=== PATIENT | female | born 1970 | race African-American/Black ===

== ENCOUNTER 2019-01-12 11:46 | Emergency (ER) | payer MEDICAID, OTHER ==
[~2019-01-12] VITALS: Ht 175.3 cm; Wt 88.0 kg
[2019-01-12 11:54] VITALS: BP 139/69
== END 2019-01-12 14:27 | disposition left against medical advice (07) ==
LOC: ER 11:59 → EDBD 11:59 → ER 14:27
DX: R42 Dizziness and giddiness (principal); Z53.21 Procedure and treatment not carried out due to patient leaving prior to being seen by health care provider